=== PATIENT | male | born 1990 | race African-American/Black ===

== ENCOUNTER 2016-12-31 11:49 | Emergency (ER) | payer OTHER ==
[~2016-12-31] VITALS: Ht 170.2 cm; Wt 63.6 kg
[2016-12-31] MEDS ORDERED: ASPI81 PO (11:57)
[2016-12-31] MEDS ORDERED: [UNRECOGNIZED DRUG - OTHER] PO (11:57)
[2016-12-31] MEDS ORDERED: HYDROCODONE/ACETAMINOPHEN 10-325 MG TABLET PO ONE (12:45)
[2016-12-31 13:57] VITALS: BP 121/76
== END 2016-12-31 13:58 | disposition home or self-care (01) ==
LOC: EMS 11:52
DX: K04.7 Periapical abscess without sinus (principal); K02.9 Dental caries, unspecified; Z79.82 Long term (current) use of aspirin
CPT/HCPCS: 99283

== ENCOUNTER 2017-02-14 10:57 | Emergency (ER) | payer OTHER, MEDICAID ==
[~2017-02-14] VITALS: Ht 177.8 cm; Wt 63.6 kg
[~2017-02-14 10:57] MED LIST: ASPI81 PO; [UNRECOGNIZED DRUG - OTHER] PO
[2017-02-14 11:33] VITALS: BP 118/65
[2017-02-14] MEDS ORDERED: AMOX TR/POT CLAV 875 MG/125 MG TABLET PO ONE (12:00)
[2017-02-14] MEDS ORDERED: IBUPROFEN 800 MG TABLET PO ONE (12:00)
== END 2017-02-14 12:36 | disposition home or self-care (01) ==
LOC: EMS 10:58
DX: K04.7 Periapical abscess without sinus (principal)
CPT/HCPCS: 99283

== ENCOUNTER 2018-04-27 23:05 | Emergency (ER) | payer MEDICAID, OTHER ==
[~2018-04-27] VITALS: Ht 170.2 cm; Wt 63.6 kg
[2018-04-28] MEDS: IBUPROFEN 600 MG TABLET PO ONE ×2 (01:23→02:07)
[2018-04-28 02:05] VITALS: BP 126/68
== END 2018-04-28 02:11 | disposition home or self-care (01) ==
LOC: EMS 23:05
DX: S63.502A Unspecified sprain of left wrist, initial encounter (principal); S16.1XXA Strain of muscle, fascia and tendon at neck level, initial encounter; S20.211A Contusion of right front wall of thorax, initial encounter; V43.62XA Car passenger injured in collision with other type car in traffic accident, initial encounter; Y93.89 Activity, other specified; Y92.89 Other specified places as the place of occurrence of the external cause; Y99.8 Other external cause status
CPT/HCPCS: 99284

== ENCOUNTER 2023-02-14 05:17 | Emergency (ER) | payer OTHER ==
[~2023-02-14] VITALS: Ht 170.2 cm; Wt 56.8 kg
[2023-02-14] MEDS ORDERED: ALBU18HF12 IH (05:34)
[2023-02-14 06:36] VITALS: BP 107/62
[2023-02-14] MEDS ORDERED: BACTDSB PO (06:57)
== END 2023-02-14 07:06 | disposition home or self-care (01) ==
LOC: EMS 05:18
DX: L08.9 Local infection of the skin and subcutaneous tissue, unspecified (principal); J45.909 Unspecified asthma, uncomplicated; F12.90 Cannabis use, unspecified, uncomplicated
CPT/HCPCS: 99283

== ENCOUNTER 2023-05-14 17:05 | Emergency (ER) | payer OTHER ==
[~2023-05-14] VITALS: Ht 170.2 cm; Wt 54.5 kg
[~2023-05-14 17:05] MED LIST changes: +ALBU18HF12 IH; -ASPI81 PO; +BACTDSB PO; -[UNRECOGNIZED DRUG - OTHER] PO
[2023-05-14 19:24] VITALS: BP 115/65; TEMP 98.4
[2023-05-14] MEDS ORDERED: ALBUTEROL SULFATE HFA 90 MCG/PUFF 8 GM INHALER IH ONE (19:30)
[2023-05-14 19:42] VITALS: PULSE 71; RESP 18; O2SAT 100
[2023-05-14 20:28] LABS: COVID AG,FIA SOURCE NASAL SWAB
[2023-05-14 20:47] LABS: INFLUENZA TYPE A NEGATIVE FOR TYPE A (NEGATIVE); INFLUENZA TYPE B NEGATIVE FOR TYPE B (NEGATIVE)
== END 2023-05-14 20:52 | disposition left against medical advice (07) ==
LOC: EMS 17:06
DX: J45.909 Unspecified asthma, uncomplicated (principal); F12.90 Cannabis use, unspecified, uncomplicated; Z20.822 Contact with and (suspected) exposure to COVID-19
CPT/HCPCS: 99284; 71045; 87426; 87804; 94640; J3535

== ENCOUNTER 2023-07-01 06:48 | Emergency (ER) | payer OTHER ==
[~2023-07-01] VITALS: Ht 165.1 cm; Wt 56.8 kg
[~2023-07-01 06:48] MED LIST changes: -BACTDSB PO
[2023-07-01 06:57] VITALS: TEMP 97.8
[2023-07-01] MEDS ORDERED: FLUT10.67 IH (06:59)
[2023-07-01] MEDS ORDERED: MELO-108 PO (06:59)
[2023-07-01 07:38] VITALS: BP 101/55
[2023-07-01] MEDS ORDERED: ALBUTEROL SULFATE HFA 90 MCG/PUFF 8 GM INHALER IH ONE (08:00)
[2023-07-01] MEDS ORDERED: ALBUTEROL SULFATE 2.5 MG/0.5 ML NEB SOLUTION NEB ONE (08:00)
[2023-07-01] MEDS ORDERED: IPRATROPIUM BROMIDE 0.5 MG/2.5 ML NEB SOLUTION NEB ONE (08:00)
[2023-07-01 08:14] VITALS: PULSE 61; RESP 16; O2SAT 99
[2023-07-01 08:20] VITALS: PULSE 61; RESP 16; O2SAT 99
[2023-07-01 08:30] VITALS: PULSE 87; RESP 18; O2SAT 100
== END 2023-07-01 08:47 | disposition home or self-care (01) ==
LOC: EMS 06:51
DX: J45.909 Unspecified asthma, uncomplicated (principal); F12.90 Cannabis use, unspecified, uncomplicated
CPT/HCPCS: 99283; 94640; J3535

== ENCOUNTER 2023-07-22 07:21 | Emergency (ER) | payer OTHER ==
[~2023-07-22] VITALS: Ht 180.3 cm; Wt 61.4 kg
[~2023-07-22 07:21] MED LIST changes: +FLUT10.67 IH; +MELO-108 PO
[2023-07-22 07:25] VITALS: TEMP 98
[2023-07-22] MEDS ORDERED: IBUPROFEN 600 MG TABLET PO ONE (08:15)
[2023-07-22] MEDS ORDERED: ALBUTEROL SULFATE HFA 90 MCG/PUFF 8 GM INHALER IH ONE (08:30)
[2023-07-22] MEDS ORDERED: IBUP-1492 PO (08:39)
[2023-07-22 08:42] VITALS: BP 130/78; PULSE 86; RESP 18
== END 2023-07-22 08:59 | disposition home or self-care (01) ==
LOC: EMS 07:28
DX: S80.812A Abrasion, left lower leg, initial encounter (principal); J45.909 Unspecified asthma, uncomplicated; F12.90 Cannabis use, unspecified, uncomplicated; V09.9XXA Pedestrian injured in unspecified transport accident, initial encounter; Y93.89 Activity, other specified; Y92.89 Other specified places as the place of occurrence of the external cause; Y99.8 Other external cause status
CPT/HCPCS: 99284; 94640; 73590; 73610; J3535

== ENCOUNTER 2023-08-20 11:32 | Emergency (ER) | payer OTHER ==
[~2023-08-20] VITALS: Ht 170.2 cm; Wt 59.1 kg
[~2023-08-20 11:32] MED LIST changes: +IBUP-1492 PO
[2023-08-20 12:28] LABS: COVID AG,FIA SOURCE NASAL SWAB
[2023-08-20 12:47] LABS: INFLUENZA TYPE A NEGATIVE FOR TYPE A (NEGATIVE); INFLUENZA TYPE B NEGATIVE FOR TYPE B (NEGATIVE); SARS-COV2 (COVID) ANTIGEN,FIA Negative (Negative)
[2023-08-20] MEDS ORDERED: ALBUTEROL SULFATE HFA 90 MCG/PUFF 8 GM INHALER IH ONE (14:00)
[2023-08-20] MEDS ORDERED: IBUPROFEN 400 MG TABLET PO ONE (14:30)
[2023-08-20 14:37] VITALS: BP 140/85; PULSE 67; RESP 16; TEMP 98.1
== END 2023-08-20 14:43 | disposition home or self-care (01) ==
LOC: EMS 11:32
DX: J45.909 Unspecified asthma, uncomplicated (principal); F17.210 Nicotine dependence, cigarettes, uncomplicated; F12.90 Cannabis use, unspecified, uncomplicated; Z76.0 Encounter for issue of repeat prescription; Z20.822 Contact with and (suspected) exposure to COVID-19
CPT/HCPCS: 99283; 87426; 87804; 94640; J3535